=== PATIENT | female | born 1975 | race Caucasian/White ===

== ENCOUNTER 2017-05-27 17:47 | Emergency (ER) | payer OTHER ==
[~2017-05-27] VITALS: Ht 157.5 cm; Wt 53.5 kg
[~2017-05-27 17:47] MED LIST: TYLENOL
[2017-05-27 17:57] VITALS: BP 144/89
--- NOTE | 2017-05-27 18:10 | NUR ---
PT AMBUALTED TO BED 4.
[2017-05-27] MEDS ORDERED: ALBUTEROL SULFATE/IPRATROPIU 3 ML SOL IH STA (18:13)
--- NOTE | 2017-05-27 18:16 | NUR ---
41F BIB FAMILY C/O PERSISTANT DRY COUGH X 2 MONTHS; PT C/O ANTERIOR CHEST WALL PAIN WITH DEEP INSPIRATION AND COUGH, RADIATES TO BACK, SHARP, 5/10 X LAST NIGHT; BL LUNG SOUNDS CLEAR, RR EVEN/UNLABORED, EQUAL RISE/FALL OF CHEST NOTED AT THIS TIME; PT AA&OX4, STATES NO N/V/D AT THIS TIME; SKIN IS WARM/DRY/INTACT WITH EVEN AND STEADY GAIT; PT RESTING IN BED WITH HOB ELEVATED AND IN LOWEST POSITION; POSITIONED FOR COMFORT; ER MD MADE AWARE OF STATUS. WILL CONTINUE TO MONITOR.
--- NOTE | 2017-05-27 18:25 | NUR ---
RT AT BEDSIDE.
--- NOTE | 2017-05-27 19:10 | NUR ---
Pt report given to CARLITOS DAVENPORT. Transfer of care at this time.
[2017-05-27 19:55] VITALS: BP 144/89
--- NOTE | 2017-05-27 19:55 | NUR ---
Patient discharged with v/s stable. Written and verbal after care instructions given and explained. Patient alert, oriented and verbalized understanding of instructions. Ambulatory with steady gait. All questions addressed prior to discharge. ID band removed. Patient advised to follow up with PMD. Rx of Sudafed, Albuterol, Prednisone, Azithromycin given. Patient educated on indication of medication including possible reaction and side effects. Opportunity to ask questions provided and answered.
== END 2017-05-27 20:09 | disposition home or self-care (01) ==
LOC: MED 17:47
DX: J06.9 Acute upper respiratory infection, unspecified (principal)
CPT/HCPCS: 71045; 94640; 94760; 99283; J7620; Q0092

== ENCOUNTER 2017-09-14 01:02 | Emergency (ER) | payer OTHER ==
[~2017-09-14] VITALS: Ht 160 cm; Wt 53.1 kg
[2017-09-14 01:05] VITALS: BP 150/93
--- NOTE | 2017-09-14 01:17 | NUR ---
PT AMBULATED TO ER BED 08
--- NOTE | 2017-09-14 01:17 | NUR ---
PATIENT PRESENTS TO ED WITH SUPRAPUBIC PAIN AND BURNING WITH URINATIN X1 DAY. PATIENT DENIES N/V/D; SKIN IS PINK/WARM/DRY; AAOX4 WITH EVEN AND STEADY GAIT; LUNGS CLEAR BL; HR EVEN AND REGULAR; PT DENIES ANY FEVER, CP, SOB, OR COUGH AT THIS TIME; PATIENT STATES PAIN OF 6/10 AT THIS TIME; VSS; PATIENT POSITIONED FOR COMFORT; HOB ELEVATED; BEDRAILS UP X2; BED DOWN. ER MD MADE AWARE OF PT STATUS. CONTINUE TO MONITOR.
--- NOTE | 2017-09-14 01:45 | NUR ---
AWAITING DISCHARGE DISPOSITION FROM DR DENG.
[2017-09-14 01:54] LABS: APPEARANCE,URINE CLEAR (CLEAR); BILIRUBIN,URINE NEGATIVE (NEGATIVE); BLOOD, URINE 3+ (NEGATIVE); COLOR,URINE ORANGE (YELLOW); LEUKOCYTE ESTERASE ,URINE 1+ (NEGATIVE); NITRITE, URINE POSITIVE (NEGATIVE); UGLUCOSE NEGATIVE (NEGATIVE)
[2017-09-14] MEDS ORDERED: PHENAZOPYRIDINE 100 MG TAB PO ONE (01:55)
[2017-09-14] MEDS ORDERED: CEPHALEXIN 500 MG CAP PO ONE (01:55)
[2017-09-14 02:03] LABS: RBC,URINE 11-20 (MOD) /HPF (0-5)
[2017-09-14 02:04] LABS: WBC,URINE 20-60 /HPF (0-5)
--- NOTE | 2017-09-14 02:17 | NUR ---
WAITING FOR ER MD DR DENG DISCHARGE INSTRUCTIONS AND ANY PRESCRIPTIONS.
[2017-09-14 02:35] VITALS: BP 150/93
--- NOTE | 2017-09-14 02:35 | NUR ---
Patient discharged with v/s stable. Written and verbal after care instructions given and explained. Patient alert, oriented and verbalized understanding of instructions. Ambulatory with steady gait. All questions addressed prior to discharge. ID band removed. Patient advised to follow up with PMD. Rx of Nitrofurantoin and Phenazopyridim given. Patient educated on indication of medication including possible reaction and side effects. Opportunity to ask questions provided and answered.
== END 2017-09-14 02:35 | disposition home or self-care (01) ==
LOC: MED 01:02
DX: N39.0 Urinary tract infection, site not specified (principal)
CPT/HCPCS: 81001; 81025; 87086; 87186; 99284

== ENCOUNTER 2021-05-18 08:29 | Emergency (ER) | payer OTHER ==
[~2021-05-18] VITALS: Ht 165.1 cm; Wt 49.9 kg
[2021-05-18 08:32] VITALS: BP 151/99
--- NOTE | 2021-05-18 08:43 | NUR ---
PATIENT AMBULATED TO BED 8.
--- NOTE | 2021-05-18 08:49 | NUR ---
DR. POLANCO AT PT BEDSIDE FOR FURTHER EVALUATION.
[2021-05-18] MEDS ORDERED: KETOROLAC 60 MG/2 ML VIAL IM ONE (08:55)
--- NOTE | 2021-05-18 08:55 | NUR ---
[employer] ATPT BEDSIDE.
--- NOTE | 2021-05-18 10:20 | NUR ---
PT SLEEPING IN BED, VISIBLE EQUAL RISE AND FALL OF CHEST, VSS, WILL CONTINUE TO MONITOR.
[2021-05-18 12:26] LABS: BASOPHILS # (AUTO) 0.1 K/uL (0.00-0.22); BASOPHILS % (AUTO) 1.3 % (0.0-2.0); EOSINOPHILS # (AUTO) 1.4 K/uL (0-0.4); EOSINOPHILS % (AUTO) 13.1 % (0.0-4.0); HEMATOCRIT 40.1 % (36-48); HEMOGLOBIN 13.6 g/dL (12.0-16.0); LYMPHOCYTES # (AUTO) 2.3 K/uL (2.5-16.5); LYMPHOCYTES % (AUTO) 21.2 % (20.5-51.1); MEAN CORPUSCULAR HEMOGLOBIN 33 pg (27-31); MEAN CORPUSCULAR HGB CONC 34 g/dL (33-37); MEAN CORPUSCULAR VOLUME 97.5 fL (80-94); MONOCYTES # (AUTO) 0.7 K/uL (0.8-1.0); MONOCYTES % (AUTO) 6.4 % (1.7-9.3); NEUTROPHILS # (AUTO) 6.3 K/uL (1.8-7.7); PLATELET COUNT (AUTO) 257 K/uL (140-450); RED BLOOD CELL COUNT(AUTO) 4.11 MIL/uL (4.20-5.40); RED CELL DISTRIBUTION WIDTH 13.4 % (11.6-13.7)
--- NOTE | 2021-05-18 12:38 | NUR ---
PT RESTING IN BED, VSS, WILL CONTINUE TO MONITOR.
[2021-05-18] MEDS ORDERED: NAPR-1704 PO (12:44)
[2021-05-18 12:55] VITALS: BP 135/91
--- NOTE | 2021-05-18 12:55 | NUR ---
Patient discharged with v/s stable. Written and verbal after care instructions given FOR NONSPECIFIC CHEST PAIN and explained. Patient alert, oriented and verbalized understanding of instructions. Ambulatory with steady gait. All questions addressed prior to discharge. ID band removed. Patient advised to follow up with PMD. Rx of NAPROXEN given. Patient educated on indication of medication including possible reaction and side effects. Opportunity to ask questions provided and answered.
[2021-05-18 15:49] LABS: ALBUMIN 3.7 g/dL (3.4-5.0); ANION GAP 12.7 (8-16); CARBON DIOXIDE 27.9 mmol/L (21-32); CREATININE 0.5 mg/dL (0.6-1.3); POTASSIUM 3.6 mmol/L (3.5-5.1); TOTAL BILIRUBIN 0.4 mg/dL (0.0-1.0)
== END 2021-05-18 12:55 | disposition home or self-care (01) ==
LOC: MED 08:29
DX: R07.9 Chest pain, unspecified (principal); Z20.822 Contact with and (suspected) exposure to COVID-19; R06.02 Shortness of breath; R05.9 Cough, unspecified; Z79.899 Other long term (current) drug therapy
CPT/HCPCS: 36415; 71045; 80053; 81002; 81025; 83880; 84484; 85025; 87426; 93005; 96372; 99285; J1885; Q0092

== ENCOUNTER 2023-04-01 16:17 | Emergency (ER) | payer OTHER ==
[~2023-04-01] VITALS: Ht 160 cm; Wt 54.4 kg
[~2023-04-01 16:17] MED LIST changes: +NAPR-1704 PO
[2023-04-01 16:20] VITALS: BP 116/76; PULSE 81; RESP 18; TEMP 98.1; O2SAT 98
[2023-04-01 16:52] LABS: BILIRUBIN,URINE NEGATIVE (NEGATIVE); BLOOD, URINE TRACE-I (NEGATIVE); COLOR,URINE YELLOW (YELLOW); LEUKOCYTE ESTERASE ,URINE 2+ (NEGATIVE); NITRITE, URINE NEGATIVE (NEGATIVE); PH,URINE 6.5 (5.0-9.0); PROTEIN,URINE NEGATIVE (NEGATIVE); UGLUCOSE NEGATIVE (NEGATIVE); UROBILINOGEN,URINE 0.2 EU/dL (0.2 - 1)
[2023-04-01 16:56] LABS: APPEARANCE,URINE HAZY (CLEAR)
[2023-04-01 16:57] LABS: BACTERIA,URINE FEW /HPF (None Seen); RBC,URINE 0-5 /HPF (0-5); WHITE BLOOD CELL CASTS,URINE 0-3 /LPF (None Seen)
[2023-04-01] MEDS ORDERED: CEPH-588 PO (17:23)
[2023-04-01] MEDS ORDERED: PYR100 PO (17:23)
[2023-04-01 17:36] VITALS: BP 120/70; PULSE 80; RESP 16; TEMP 98.1; O2SAT 98
== END 2023-04-01 17:36 | disposition home or self-care (01) ==
LOC: MED 16:17
DX: N39.0 Urinary tract infection, site not specified (principal); Z79.899 Other long term (current) drug therapy; Z79.2 Long term (current) use of antibiotics; Z79.1 Long term (current) use of non-steroidal anti-inflammatories (NSAID)
CPT/HCPCS: 81001; 81025; 87086; 99283

== ENCOUNTER 2023-06-01 20:18 | Emergency (ER) | payer OTHER ==
[~2023-06-01] VITALS: Ht 160 cm; Wt 54.4 kg
[~2023-06-01 20:18] MED LIST changes: +CEPH-588 PO; +PYR100 PO
[2023-06-01 20:23] VITALS: BP 136/87; PULSE 92; RESP 16; TEMP 99.4; O2SAT 97
[2023-06-01 20:46] LABS: BASOPHILS # (AUTO) 0.1 K/uL (0.00-0.22); BASOPHILS % (AUTO) 0.9 % (0.0-2.0); EOSINOPHILS # (AUTO) 0.8 K/uL (0-0.4); EOSINOPHILS % (AUTO) 9.3 % (0.0-4.0); HEMATOCRIT 39.5 % (36-48); HEMOGLOBIN 13.3 g/dL (12.0-16.0); LYMPHOCYTES # (AUTO) 1.4 K/uL (2.5-16.5); LYMPHOCYTES % (AUTO) 16.9 % (20.5-51.1); MEAN CORPUSCULAR HEMOGLOBIN 32 pg (27-31); MEAN CORPUSCULAR HGB CONC 34 g/dL (33-37); MEAN CORPUSCULAR VOLUME 95.1 fL (80-94); MONOCYTES # (AUTO) 1.2 K/uL (0.8-1.0); MONOCYTES % (AUTO) 14.8 % (1.7-9.3); NEUTROPHILS # (AUTO) 4.8 K/uL (1.8-7.7); NEUTROPHILS % (AUTO) 58.1 % (42.2-75.2); PLATELET COUNT (AUTO) 262 K/uL (140-450); RED BLOOD CELL COUNT(AUTO) 4.15 MIL/uL (4.20-5.40); RED CELL DISTRIBUTION WIDTH 13.4 % (11.6-13.7); WHITE BLOOD COUNT (AUTO) 8.3 K/uL (4.8-10.8)
[2023-06-01 20:54] LABS: CALCIUM 8.4 mg/dL (8.5-10.1); CARBON DIOXIDE 33.6 mmol/L (21-32); CREATININE 0.8 mg/dL (0.6-1.3); POTASSIUM 3.6 mmol/L (3.5-5.1)
[2023-06-01 21:00] LABS: ALBUMIN 3.6 g/dL (3.4-5.0); BILIRUBIN,DIRECT 0.1 mg/dL (0.0-0.3); TOTAL PROTEIN, SERUM 8.4 g/dL (6.4-8.2)
[2023-06-01 21:06] LABS: APPEARANCE,URINE CLEAR (CLEAR); BILIRUBIN,URINE NEGATIVE (NEGATIVE); BLOOD, URINE 1+ (NEGATIVE); COLOR,URINE YELLOW (YELLOW); LEUKOCYTE ESTERASE ,URINE NEGATIVE (NEGATIVE); NITRITE, URINE NEGATIVE (NEGATIVE); PROTEIN,URINE NEGATIVE (NEGATIVE); UGLUCOSE NEGATIVE (NEGATIVE); UROBILINOGEN,URINE 0.2 EU/dL (0.2 - 1)
[2023-06-01 21:16] LABS: TOTAL BILIRUBIN 0.1 mg/dL (0.0-1.0)
[2023-06-01 21:25] LABS: BACTERIA,URINE FEW /HPF (None Seen); MUCUS,URINE None Seen /LPF (None Seen); SQUAMOUS EPITHELIAL CELL,UR 0-3 (FEW) /LPF (0-3 (FEW)); TRICHOMONAS,URINE None Seen /HPF (None Seen); WBC,URINE 0-5 /HPF (0-5); WHITE BLOOD CELL CASTS,URINE None Seen /LPF (None Seen); YEAST,URINE None Seen /HPF (None Seen)
[2023-06-02] MEDS ORDERED: DOCU-300 PO (04:30)
[2023-06-02 04:43] VITALS: BP 147/94; PULSE 78; RESP 20; TEMP 98.1; O2SAT 100
== END 2023-06-02 04:43 | disposition home or self-care (01) ==
LOC: MED 20:18
DX: K59.00 Constipation, unspecified (principal); R10.32 Left lower quadrant pain; Z79.899 Other long term (current) drug therapy
CPT/HCPCS: 36415; 74177; 80048; 80076; 81001; 81025; 83690; 85025; 99285; Q9967